=== PATIENT | female | born 1950 | race Caucasian/White ===

== ENCOUNTER 2018-12-18 18:00 | Inpatient (IN) | payer MEDICARE ==
[~2018-12-18] VITALS: Ht 165.1 cm; Wt 76.7 kg
[2018-12-18] MEDS ORDERED: COUMADIN 6MG6 MG/TAB PO (18:28)
[2018-12-18] MEDS ORDERED: DIGITEK0.125 MG (18:48)
[2018-12-18] MEDS ORDERED: DIGITEK0.125 MG PO (18:48)
[2018-12-18] MEDS ORDERED: FOLIC ACID 11 MG/TA1 PO (18:48)
[2018-12-18] MEDS ORDERED: METHOTREXA2.5 MG/TAB PO (18:49)
[2018-12-18] MEDS ORDERED: LASIX 40MG TABL40 MG PO (18:49)
[2018-12-18] MEDS ORDERED: RT SPIRIVA18 MCG IH (18:50)
[2018-12-18] MEDS ORDERED: 00186-0370-20 IH (18:50)
[2018-12-18] MEDS ORDERED: PRILOSEC 20MG20 MG PO (18:50)
[2018-12-18] MEDS ORDERED: KCL100IV (18:50)
[2018-12-18] MEDS ORDERED: KLOR-CON M1010 MEQ PO (19:38)
[2018-12-18] MEDS ORDERED: ZANTAC 150MG T150 MG PO (19:41)
[2018-12-18 20:14] LABS: BASO % 0.4 % (0.0-2.0); EOS # 0.1 (0.0-0.7); EOS % 0.7 % (0-4.0); GRAN % 88.5 % (42.2-75.2); HEMATOCRIT 37.7 % (37.0-47.0); LYMPH # 0.4 (1.2-3.4); LYMPH % 3.6 % (20.0-51.0); MEAN CELL VOLUME 95 fl (80.0-100.0); MEAN CORPUSCULAR HEMOGLOBIN 30 pg (27.0-31.0); MEAN CORPUSCULAR HGB CONC 32 g/dl (33.0-37.0); MEAN PLATELET VOLUME 9.7 fl (7.4-10.4); MONO # 0.7 (0.1-0.6); MONO % 6.4 % (1.7-9.3); PLATELET COUNT 192 K/mm3 (130-400); RED BLOOD COUNT 3.98 M/mm3 (4.10-5.30); REDCELL DISTRIBUTION WIDTH-CV 15.9 % (11.5-14.5)
[2018-12-18 20:20] LABS: INR 5.3 (0.8-3.0)
[2018-12-18 20:29] LABS: ALBUMIN 3.6 gm/dL (3.5-5.0); BILIRUBIN,TOTAL 0.9 mg/dL (0.0-1.0); CREATININE, serum 0.44 (0.52-1.25); DIGOXIN 0.9 ng/mL (0.8-2.0); POTASSIUM 3.6 mmol/L (3.4-5.0); TOTAL PROTEIN 5.9 gm/dL (6.4-8.2)
[2018-12-18 21:44] LABS: INR 5.4 (0.8-3.0); PROTHROMBIN TIME 66.3 SECONDS (9.7-12.8)
[2018-12-18 23:24] LABS: INR 1.4 (0.8-3.0); PROTHROMBIN TIME 16.5 SECONDS (9.7-12.8)
[2018-12-18 23:29] VITALS: BP 133/84; PULSE 75; TEMP 97.7
[2018-12-18 23:43] VITALS: BP 133/84; PULSE 70; TEMP 97.7
[2018-12-19] MEDS ORDERED: PROFERRIN ES12 MG PO (00:15)
--- NOTE | 2018-12-19 00:31 | NUR ---
Patient arrived to unit from ED. Patient here with dx of hemtoma to LLE. Extremity is severely bruised with a blister the size of a quarter with a few smaller sized blisters around it. Patient dropped o2 tank on leg on Sunday. Patient is a/o with VSS. Patient is able to bear weight on that leg, states it is painful to do so. Patient currently in room with leg elevated. Has gauze and brandon wrap around LLE. Patient received dose of pain medication at 1225. Patient resting in bed. Patient has no other concerns at this time. Call light within reach, will continue to monitor
[2018-12-19 04:07] VITALS: BP 92/55; PULSE 74; TEMP 97.9
[2018-12-19 05:55] LABS: BASO % 0.4 % (0.0-2.0); EOS # 0.2 (0.0-0.7); EOS % 2.1 % (0-4.0); GRAN # 8.1 (1.4-6.5); GRAN % 84.6 % (42.2-75.2); HEMOGLOBIN 10.5 g/dl (12.5-16.0); LYMPH # 0.4 (1.2-3.4); LYMPH % 4.4 % (20.0-51.0); MEAN CELL VOLUME 96 fl (80.0-100.0); MEAN CORPUSCULAR HEMOGLOBIN 31 pg (27.0-31.0); MEAN CORPUSCULAR HGB CONC 32 g/dl (33.0-37.0); MEAN PLATELET VOLUME 9.9 fl (7.4-10.4); MONO # 0.8 (0.1-0.6); PLATELET COUNT 160 K/mm3 (130-400); RED BLOOD COUNT 3.44 M/mm3 (4.10-5.30); REDCELL DISTRIBUTION WIDTH-CV 15.8 % (11.5-14.5)
[2018-12-19 05:56] LABS: INR 1.3 (0.8-3.0); PROTHROMBIN TIME 14.9 SECONDS (9.7-12.8)
[2018-12-19 06:05] LABS: ALBUMIN 3.2 gm/dL (3.5-5.0); BILIRUBIN,TOTAL 1.2 mg/dL (0.0-1.0); CALCIUM 7.8 mg/dL (8.4-10.2); CREATININE, serum 0.43 (0.52-1.25); POTASSIUM 3.7 mmol/L (3.4-5.0); TOTAL PROTEIN 5.6 gm/dL (6.4-8.2)
[2018-12-19 07:03] VITALS: BP 124/72
[2018-12-19 08:30] VITALS: BP 104/63; PULSE 95; TEMP 98.6
--- NOTE | 2018-12-19 10:56 | NUR ---
Initial visit; Patient thanked [employer] for looking in on her and offering God's blessings.
--- NOTE | 2018-12-19 11:30 | NUR ---
Patient has been up walking to the bathroom. Otherwise she has been in bed with her leg elevated most the day. She is having a headache. She stated she is having a headache. She stated she gets them sometimes. She has been having 1-2 minutes runs of heartrate in the 130-150s. Hospitalist Dr Vora has been notified. It has happened when she gets up to bathroom and when she is laying in bed. Tried to get and EKG but by the time we got it she was back to 80-90's. Patient denies chest pain or shortness of breath while this is happening. No other changes at this time. Call light within reach.
[2018-12-19 11:58] VITALS: BP 110/65; PULSE 123; TEMP 98.1
--- NOTE | 2018-12-19 12:50 | NUR ---
social worker psychiatric met with patient and spouse to discuss discharge planning. Patient states that she plans to return home, where she resides with spouse in [place]. Patient states her primary care provider is Dr Vinson and denies difficulty obtaining her prescriptions. Patient states she does not have any advance directives and is not interested in obtaining forms at this time. Worker collaborated with patient's nurse and nurse states patient is independent in her room and does not need physical therapy ordered. Patient has home oxygen.
[2018-12-19 16:29] VITALS: BP 97/64; PULSE 77; TEMP 97.8
--- NOTE | 2018-12-19 18:00 | NUR ---
Patient did well this am. No more headaches. She has several visitors this afternoon. No other changes at this time. Call light within reach.
[2018-12-19 20:00] VITALS: BP 101/66; PULSE 87; TEMP 98.1
[2018-12-20 00:08] VITALS: BP 95/65; PULSE 88; TEMP 98.2
--- NOTE | 2018-12-20 02:26 | NUR ---
Patient resting well at this time. Calls to this nurse and states she is having a lot of pain and she felt she waited too long. Rates pain 8/10. PRN Tylenol given per orders. This nurse states she can have PRN Dilaudid in 45 minutes if the tylenol doesn't help. Patient called this nurse and was noted to be crying in pain and asked for the dilaudid. This was administered. Ice also applied to help with pain and inflammation. Patient spoke with this nurse for about 30 minutes and stated that it was helping distract her from the pain. Dressing to left leg from ankle to thigh. Bulge above knee noted where gauze was applied during dressing change on day shift. No drainage noted to brandon wrap. Will continue to monitor patient.
[2018-12-20 05:54] VITALS: BP 104/55; PULSE 63; TEMP 97.8
[2018-12-20 06:35] LABS: BASO % 0.3 % (0.0-2.0); EOS # 0.2 (0.0-0.7); EOS % 3.1 % (0-4.0); GRAN # 4.7 (1.4-6.5); GRAN % 77.1 % (42.2-75.2); LYMPH # 0.5 (1.2-3.4); LYMPH % 7.6 % (20.0-51.0); MEAN CELL VOLUME 96 fl (80.0-100.0); MEAN CORPUSCULAR HGB CONC 31 g/dl (33.0-37.0); MEAN PLATELET VOLUME 9.9 fl (7.4-10.4); MONO # 0.7 (0.1-0.6); MONO % 11.2 % (1.7-9.3); PLATELET COUNT 137 K/mm3 (130-400); RED BLOOD COUNT 3.12 M/mm3 (4.10-5.30); REDCELL DISTRIBUTION WIDTH-CV 15.9 % (11.5-14.5)
[2018-12-20 06:46] LABS: CALCIUM 7.9 mg/dL (8.4-10.2); CREATININE, serum 0.42 (0.52-1.25); HEMOGLOBIN 9.4 g/dl (12.5-16.0); MEAN CORPUSCULAR HEMOGLOBIN 30 pg (27.0-31.0); POTASSIUM 3.4 mmol/L (3.4-5.0)
--- NOTE | 2018-12-20 07:00 | NUR ---
Report received from MEHUL Malik. Pt in bed resting, Dr. Delgado in room removing and replacing dressing. LLE inner aspect of knee is covered with a large blood blister that is "improving" per Danny and pt. Denies needs, will continue to monitor.
[2018-12-20 07:39] VITALS: BP 87/42; PULSE 89; TEMP 98.3
[2018-12-20 07:54] VITALS: BP 95/48; PULSE 87
--- NOTE | 2018-12-20 08:23 | NUR ---
Assessment charted. Pt in bed resting, per MUSIC COPYIST BP low this am, rechecked and it is still low but improved from am check. Pt resting in bed. Pain is at 4/10 to LLE. Will ask hospitalist for other PO pain medication options and provide ice pack. Pt can move toes, feels everything, CMS intact but swelling is +2 to that extremity. Denies other needs. 02 remains at baseline of 5L/NC. INT to R a/c. Will continue to monitor.
[2018-12-20] MEDS ORDERED: CEFTIN 250250 MG/TAB PO (11:02)
[2018-12-20] MEDS ORDERED: LASIX 40MG TABL40 MG PO (11:05)
[2018-12-20] MEDS ORDERED: NORCO 325 MG-51 TAB PO (11:09)
[2018-12-20 11:29] VITALS: BP 103/57; PULSE 81; TEMP 98.1
[2018-12-20 12:42] VITALS: BP 96/59
[2018-12-20] MEDS ORDERED: COUMADIN 5MG5 MG/TAB PO (13:09)
--- NOTE | 2018-12-20 13:56 | NUR ---
Discharged pt at this time. Pt received discharge packet, reviewed f/u appiontments, answered all qeustions. Pt given pack of 4x4's and foam tape for showering. Script given. INT dc'd, tip intact. Pt leaving with all belongings via w/c with surigcal staff. family to drive home, criteria met.
== END 2018-12-20 13:56 | disposition home or self-care (01) | DRG 605 ==
LOC: COL.ER 18:00 → SURG 20:37
PROVIDERS: Nurse Practitioner Family; Physician Assistant; ADMIT Hospitalist
PROC: 30283B1 Transfusion of Nonautologous 4-Factor Prothrombin Complex Concentrate into Vein, Percutaneous Approach (ICD-10-PCS; principal; 2018-12-18)
DX: S80.12XA Contusion of left lower leg, initial encounter (principal); J96.11 Chronic respiratory failure with hypoxia; E87.3 Alkalosis; I27.20 Pulmonary hypertension, unspecified; D64.9 Anemia, unspecified; R79.1 Abnormal coagulation profile; I50.9 Heart failure, unspecified; J44.9 Chronic obstructive pulmonary disease, unspecified; M06.9 Rheumatoid arthritis, unspecified; K21.9 Gastro-esophageal reflux disease without esophagitis; Z90.49 Acquired absence of other specified parts of digestive tract; Z90.710 Acquired absence of both cervix and uterus; Z87.891 Personal history of nicotine dependence; Z99.81 Dependence on supplemental oxygen; Z86.711 Personal history of pulmonary embolism; Z79.01 Long term (current) use of anticoagulants; T45.515A Adverse effect of anticoagulants, initial encounter
CPT/HCPCS: 99222-AI; 99239; C9132; J1170; J3430

== ENCOUNTER → 2021-03-07 | Outpatient (CLI) | payer MEDICARE ==
[~2021-03-07] MED LIST: 00186-0370-20 IH; CEFTIN 250250 MG/TAB PO; COUMADIN 5MG5 MG/TAB PO; COUMADIN 6MG6 MG/TAB PO; DIGITEK0.125 MG; DIGITEK0.125 MG PO; FOLIC ACID 11 MG/TA1 PO; KCL100IV; KLOR-CON M1010 MEQ PO; LASIX 40MG TABL40 MG PO; METHOTREXA2.5 MG/TAB PO; NORCO 325 MG-51 TAB PO; PRILOSEC 20MG20 MG PO; PROFERRIN ES12 MG PO; RT SPIRIVA18 MCG IH; ZANTAC 150MG T150 MG PO
== END ==
LOC: COL.VAS 13:15
DX: Z12.2 Encounter for screening for malignant neoplasm of respiratory organs (principal); R91.8 Other nonspecific abnormal finding of lung field; I27.20 Pulmonary hypertension, unspecified; I34.0 Nonrheumatic mitral (valve) insufficiency; Z87.891 Personal history of nicotine dependence

== ENCOUNTER → 2022-07-04 | Outpatient (CLI) | payer MEDICARE | LOC: COL.VAS 12:05 | DX: J43.9 Emphysema, unspecified (principal); I27.20 Pulmonary hypertension, unspecified; J18.1 Lobar pneumonia, unspecified organism; R91.1 Solitary pulmonary nodule; R91.8 Other nonspecific abnormal finding of lung field ==